=== PATIENT | male | born 1960 | race Caucasian/White ===

== ENCOUNTER 2022-05-24 05:50 | Emergency (ER) | payer MEDICAID, OTHER ==
[~2022-05-24] VITALS: Ht 172.7 cm; Wt 68.0 kg
--- NOTE | 2022-05-24 06:18 | NUR ---
Patient was called to be triaged but was not present in the waiting room or outside of ER.
--- NOTE | 2022-05-24 06:19 | NUR ---
Patient walked to ER with steady gait. NAD noted
--- NOTE | 2022-05-24 06:45 | NUR ---
Dr Tee at bedside, MSE in progress
--- NOTE | 2022-05-24 06:56 | NUR ---
change of shift report to Keren COTTER
[2022-05-24] MEDS ORDERED: LIDOCAINE 5% PATCH TD ONE ×2 (07:00→07:19)
[2022-05-24] MEDS ORDERED: ACETAMINOPHEN 325 MG TABLET PO ONE (07:00)
[2022-05-24] MEDS ORDERED: KETOROLAC TROMETHAMINE 30 MG INJ IM ONE (07:00)
[2022-05-24] MEDS ORDERED: ACETAMINOPHEN 325 MG TABLET ONE (07:19)
[2022-05-24] MEDS ORDERED: KETOROLAC TROMETHAMINE 30 MG INJ ONE (07:19)
--- NOTE | 2022-05-24 07:27 | NUR ---
Patient refused toradol and tylenol, stating "I can get that over the counter"
--- NOTE | 2022-05-24 07:27 | NUR ---
DCd instructions provided to pt. who verbalized understaning.
[2022-05-24] MEDS ORDERED: METH-807 PO (07:29)
[2022-05-24] MEDS ORDERED: LIDO1ADH71 TD (07:29)
--- NOTE | 2022-05-24 07:33 | NUR ---
DCD instructions and prescription given to pt. by emmett Turk. pt. verbalized understanding.
== END 2022-05-24 07:40 | disposition home or self-care (01) ==
LOC: ER 06:01
DX: S39.92XA Unspecified injury of lower back, initial encounter (principal); S29.9XXA Unspecified injury of thorax, initial encounter; M25.512 Pain in left shoulder; W18.30XA Fall on same level, unspecified, initial encounter; Y92.89 Other specified places as the place of occurrence of the external cause; M54.9 Dorsalgia, unspecified; R07.81 Pleurodynia; E03.9 Hypothyroidism, unspecified
CPT/HCPCS: 73030; A4663; J1885